=== PATIENT | male | born 1950 | race Caucasian/White ===

== ENCOUNTER 2019-07-19 09:12 | Day surgery (SDC) | payer OTHER ==
[~2019-07-19 09:12] MED LIST: GABAPE PO; PRILOSEC OTC20 MG PO
[2019-07-19] MEDS ORDERED: COLACE100 MG PO (13:28)
[2019-07-19] MEDS ORDERED: NEURONTIN300 MG PO (13:28)
[2019-07-19] MEDS ORDERED: PERCOCET 5-3251 EACH PO (13:28)
== END 2019-07-19 19:10 | disposition home or self-care (01) ==
LOC: CIR.AMB 09:12
DX: K64.8 Other hemorrhoids (principal); K64.4 Residual hemorrhoidal skin tags